=== PATIENT | female | born 1975 | race Caucasian/White ===

== ENCOUNTER 2019-03-08 14:39 | Emergency (ER) | payer OTHER ==
[2019-03-08 14:49] VITALS: TEMP 98.4
--- NOTE | 2019-03-08 15:17 | ED ---
General Adult HPI - General Chief complaint: Psychiatric Symptoms Stated complaint: SUICIDAL Time Seen by Provider: 03/08/19 14:45 Source: patient, RN notes reviewed Mode of arrival: ambulatory Limitations: no limitations - History of Present Illness Initial comments: This a 43-year-old female presents emergency department with past medical history significant for depression. Patient states today she comes in because she has had an urge to harm herself. Patient states she is scratching at her wrists. Patient states she has had some suicidal thoughts but she is always had some suicidal thoughts. Patient does not think she is at the point where she would act on them. Patient denies any drug use patient denies any L Colles'. Patient denies any physical complaints today. Patient denies headache patient denies numbness weakness. Patient denies lightheadedness dizziness or near syncopal episode. Patient denies any chest pain palpitations difficulty breathing shortest breath per patient denies any abdominal pain patient denies nausea vomiting or diarrhea. - Related Data Home Medications Medication Instructions Recorded Confirmed Acetaminophen-Codeine 300-30mg 1 tab PO BID PRN 08/19/16 03/08/19 [Tylenol w/codeine #3] Albuterol Inhaler [Ventolin Hfa 1 - 2 puff INHALATION RT-Q6H PRN 08/19/16 0 03/08/19 Inhaler] Mometasone/Formoterol [Dulera 200 2 puff INHALATION RT-BID 03/08/19 03/08/19 Mcg/5 Mcg Inhaler] tiZANidine [Zanaflex] 4 mg PO TID 03/08/19 03/08/19 Previous Rx's Medication Instructions Recorded Escitalopram [Lexapro] 20 mg PO DAILY #30 tab 08/26/16 OLANZapine ODT [ZyPREXA Zydis] 5 mg PO BID PRN #30 tab 08/26/16 QUEtiapine [SEROquel] 200 mg PO HS #30 tab 08/26/16 Allergies Allergy/AdvReac Type Severity Reaction Status Date / Time lamotrigine [From Lamictal] Allergy Unknown Verified 03/08/19 16:11 latex Allergy Rash/Hives Verified 03/08/19 16:16 prochlorperazine Allergy Unknown Verified 03/08/19 16:11 [From Compazine] promethazine [From Phenergan] Allergy Unknown Verified 03/08/19 16:11 prednisone AdvReac Hallucinati Verified 03/08/19 16:11 ons Review of Systems ROS Statement: Those systems with pertinent positive or pertinent negative responses have been documented in the HPI. ROS Other: All systems not noted in ROS Statement are negative. Past Medical History Past Medical History: Asthma, Musculoskeletal Disorder Additional Past Medical History / Comment(s): spinal stenonsis, 2 herniated discs History of Any Multi-Drug Resistant Organisms: None Reported Past Surgical History: Cholecystectomy, Joint Replacement Additional Past Surgical History / Comment(s): bilateral knee Past Psychological History: Anxiety, Depression Smoking Status: Never smoker Past Alcohol Use History: None Reported Past Drug Use History: None Reported General Exam - General Exam Comments Initial Comments: GENERAL: Patient is well-developed and well-nourished. Patient is nontoxic and well- hydrated and is in no acute distress. ENT: Neck is soft and supple. No significant lymphadenopathy is noted. Oropharynx is clear. Moist mucous membranes. Neck has full range of motion without eliciting any pain. EYES: The sclera were anicteric and conjunctiva were pink and moist. Extraocular movements were intact and pupils were equal round and reactive to light. Eyelids were unremarkable. PULMONARY: Unlabored respirations. Good breath sounds bilaterally. No audible rales rhonchi or wheezing was noted. CARDIOVASCULAR: There is a regular rate and rhythm without any murmurs gallops or rubs. ABDOMEN: Soft and nontender with normal bowel sounds. No palpable organomegaly was noted. There is no palpable pulsatile mass. SKIN: Skin is clear with no lesions or rashes and otherwise unremarkable. NEUROLOGIC: Patient is alert and oriented x3. Cranial nerves II through XII are grossly in tact. Motor and sensory are also intact. Normal speech, volume and content. Symmetrical smile. MUSCULOSKELETAL: Normal extremities with adequate strength and full range of motion. No lower extremity swelling or edema. No calf tenderness. PSYCHIATRIC: Patient states she wants to harm herself. Limitations: no limitations Course Vital Signs 03/08/19 14:47 Temperature 98.4 F Pulse Rate 123 H Respiratory 16 Rate Blood Pressure 125/82 O2 Sat by Pulse 96 Oximetry Medical Decision Making - Lab Data Lab Results 03/08/19 Range/Units 15:00 Urine Opiates Screen Not Detected (NotDetected) Ur Oxycodone Screen Not Detected (NotDetected) Urine Methadone Screen Not Detected (NotDetected) Ur Propoxyphene Screen Not Detected (NotDetected) Ur Barbiturates Screen Not Detected (NotDetected) U Tricyclic Antidepress Detected H (NotDetected) Ur Phencyclidine Scrn Not Detected (NotDetected) Ur Amphetamines Screen Not Detected (NotDetected) U Methamphetamines Scrn Not Detected (NotDetected) U Benzodiazepines Scrn Not Detected (NotDetected) Urine Cocaine Screen Not Detected (NotDetected) U Marijuana (THC) Screen Not Detected (NotDetected) Disposition Clinical Impression: Depression Disposition: HOME SELF-CARE Condition: Good Instructions (If sedation given, give patient instructions): Depression (ED) Is patient prescribed a controlled substance at d/c from ED?: No Referrals: Gaudencio Eason DO [Primary Care Provider] - 1-2 days Time of Disposition: 17:44
[2019-03-08 15:45] LABS: Amphetamine Screen,Urine Not Detected (NotDetected); Barbiturate Screen,Urine Not Detected (NotDetected); Benzodiazepines Screen,Urine Not Detected (NotDetected); Cocaine Screen,Urine Not Detected (NotDetected); Methadone Screen, Urine Not Detected (NotDetected); Opiate Screen,Urine Not Detected (NotDetected); Oxycodone Screen, Urine Not Detected (NotDetected); Phencyclidine Screen,Urine Not Detected (NotDetected); Tricyclic Antidepressant,Urine Detected (NotDetected); Urn Cannabinoid Scrn Not Detected (NotDetected)
[2019-03-08 17:54] VITALS: BP 131/70; PULSE 78; RESP 18
== END 2019-03-08 17:55 | disposition home or self-care (01) ==
LOC: EC 14:39
DX: F32.9 Major depressive disorder, single episode, unspecified (principal); R45.851 Suicidal ideations; J45.909 Unspecified asthma, uncomplicated; Z88.8 Allergy status to other drugs, medicaments and biological substances; Z91.040 Latex allergy status; Z79.51 Long term (current) use of inhaled steroids; Z87.39 Personal history of other diseases of the musculoskeletal system and connective tissue; Z96.653 Presence of artificial knee joint, bilateral
CPT/HCPCS: 80306; 82075; 99285

== ENCOUNTER 2019-03-13 11:37 | Inpatient (IN) | payer OTHER ==
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
[2019-03-13 17:23] LABS: Amphetamine Screen,Urine Not Detected (NotDetected); Barbiturate Screen,Urine Not Detected (NotDetected); Benzodiazepines Screen,Urine Not Detected (NotDetected); Cocaine Screen,Urine Not Detected (NotDetected); Methadone Screen, Urine Not Detected (NotDetected); Opiate Screen,Urine Detected (NotDetected); Oxycodone Screen, Urine Not Detected (NotDetected); Phencyclidine Screen,Urine Not Detected (NotDetected); Tricyclic Antidepressant,Urine Detected (NotDetected); Urn Cannabinoid Scrn Not Detected (NotDetected)
[2019-03-13] MEDS ORDERED: ALBUTEROL NEBULIZED 2.5 MG/3 ML INHALATION PRN (17:29)
[2019-03-13] MEDS ORDERED: MAG HYDROX/AL HYDROX/SIMETH 30 ML CUP PO PRN (17:30)
[2019-03-13] MEDS ORDERED: LORazepam 1 MG TAB PO PRN (17:30)
[2019-03-13] MEDS ORDERED: ZIPRASIDONE 20 MG VIAL IM PRN (17:30)
[2019-03-13] MEDS ORDERED: LORazepam 2 MG/ML INJ IM PRN (17:33)
[2019-03-13 18:21] VITALS: BMI 46.6
[2019-03-13] MEDS: ACETAMINOPHEN TAB 325 MG TAB PO PRN (20:48)
[2019-03-13] MEDS: QUEtiapine 50 MG TAB PO SCH (20:48)
[2019-03-13] MEDS: SYMBICORT 160-4.5 MCG INHALER INHALATION SCH (21:34)
[2019-03-14] MEDS ORDERED: IBUPROFEN 600 MG TAB PO PRN (07:11)
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
[2019-03-14] MEDS: ALBUTEROL INHALER 60 PUFF/8 GM INHALER INHALATION PRN ×3 (07:48→20:17)
[2019-03-14] MEDS: SYMBICORT 160-4.5 MCG INHALER INHALATION SCH ×2 (07:48→15:57)
[2019-03-14] MEDS ORDERED: PNEUMOCOCCAL VACC-PNEUMOVAX 23 25 MCG/0.5 ML VIAL IM ONE (09:00)
[2019-03-14] MEDS ORDERED: ESCITALOPRAM 20 MG TAB PO SCH (09:00)
[2019-03-14 10:27] LABS: Basophils # (A) 0.1 k/uL (0-0.2); Basophils % (A) 1 %; Eosinophils # (A) 0.4 k/uL (0-0.7); Eosinophils % (A) 5 %; HCT 45.4 % (34.0-46.0); HGB 14.6 gm/dL (11.4-16.0); Lymphocytes # (A) 1.6 k/uL (1.0-4.8); Lymphocytes % (A) 23 %; MCHC 32.2 g/dL (31.0-37.0); MCV 86.8 fL (80.0-100.0); Mean Platelet Volume 7.7; Monocytes # (A) 0.3 k/uL (0-1.0); Monocytes % (A) 5 %; Neutrophils # (A) 4.8 k/uL (1.3-7.7); Neutrophils % (A) 67 %; Platelet Count 268 k/uL (150-450); RBC 5.23 m/uL (3.80-5.40); RDW 13.9 % (11.5-15.5); WBC 7.2 k/uL (3.8-10.6)
[2019-03-14 11:28] LABS: Albumin 4.1 g/dL (3.5-5.0); Calcium 9.7 mg/dL (8.4-10.2); Potassium 4.5 mmol/L (3.5-5.1); Total Bilirubin 0.5 mg/dL (0.2-1.3); Total Protein 6.9 g/dL (6.3-8.2)
[2019-03-14] MEDS: ACETAMINOPHEN TAB 325 MG TAB PO PRN (11:37)
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
[2019-03-14] MEDS: Acetaminophen-Codeine 300-30mg TAB PO PRN (15:00)
[2019-03-14] MEDS: tiZANidine 4 MG TAB PO PRN (15:04)
[2019-03-14] MEDS: PRAMIPEXOLE 0.5 MG TAB PO SCH (20:23)
[2019-03-14] MEDS: OXcarbazepine 150 MG TAB PO SCH (20:23)
[2019-03-14] MEDS: QUEtiapine 50 MG TAB PO SCH (20:23)
[2019-03-15] MEDS: Acetaminophen-Codeine 300-30mg TAB PO PRN ×2 (08:32→18:26)
[2019-03-15] MEDS: OXcarbazepine 150 MG TAB PO SCH (08:33)
[2019-03-15] MEDS: tiZANidine 4 MG TAB PO PRN ×2 (09:08→18:26)
[2019-03-15] MEDS: SYMBICORT 160-4.5 MCG INHALER INHALATION SCH ×2 (10:13→21:25)
[2019-03-15] MEDS: ALBUTEROL INHALER 60 PUFF/8 GM INHALER INHALATION PRN ×2 (10:13→21:25)
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
[2019-03-15] MEDS: OXcarbazepine 300 MG TAB PO SCH (21:29)
[2019-03-15] MEDS: QUEtiapine 50 MG TAB PO SCH (21:30)
[2019-03-15] MEDS: PRAMIPEXOLE 0.5 MG TAB PO SCH (21:30)
[2019-03-16] MEDS: OXcarbazepine 300 MG TAB PO SCH (08:22)
[2019-03-16] MEDS: Acetaminophen-Codeine 300-30mg TAB PO PRN ×2 (08:22→21:05)
[2019-03-16] MEDS: tiZANidine 4 MG TAB PO PRN ×2 (09:02→21:04)
[2019-03-16] MEDS: SYMBICORT 160-4.5 MCG INHALER INHALATION SCH ×2 (09:51→20:43)
[2019-03-16] MEDS: ALBUTEROL INHALER 60 PUFF/8 GM INHALER INHALATION PRN ×3 (09:52→20:42)
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
[2019-03-16] MEDS ORDERED: lamoTRIgine 25 MG TAB PO SCH (21:00)
[2019-03-16] MEDS: PRAMIPEXOLE 1 MG TAB PO SCH (21:03)
[2019-03-16] MEDS: QUEtiapine 100 MG TAB PO SCH (21:03)
[2019-03-17] MEDS: ALBUTEROL INHALER 60 PUFF/8 GM INHALER INHALATION PRN ×3 (08:59→20:47)
[2019-03-17] MEDS: SYMBICORT 160-4.5 MCG INHALER INHALATION SCH ×2 (09:00→20:48)
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
[2019-03-17] MEDS: tiZANidine 4 MG TAB PO PRN (14:55)
[2019-03-17] MEDS: Acetaminophen-Codeine 300-30mg TAB PO PRN (14:55)
[2019-03-17 15:13] LABS: Appearance,Urine Clear (Clear); Bacteria,Urine Rare /hpf; Bilirubin,Urine Negative (Negative); Blood,Urine Trace (Negative); Color,Urine Light Yellow; Glucose,Urine (UA) Negative (Negative); Ketones,Urine Negative (Negative); Leukocyte Esterase,Urine Small (Negative); Mucus,Urine Rare /hpf; Nitrite,Urine Negative (Negative); Protein,Urine Negative (Negative); RBC,Urine 1 /hpf (0-5); Specific Gravity,Urine 1.012 (1.001-1.035); Squamous Epithelial Cell,Urine 2 /hpf (0-4); Urobilinogen,Urine <2.0 mg/dL (<2.0); WBC,Urine 1 /hpf (0-5)
[2019-03-17] MEDS: PRAMIPEXOLE 1 MG TAB PO SCH (20:13)
[2019-03-17] MEDS: QUEtiapine 100 MG TAB PO SCH (20:13)
[2019-03-17] MEDS ORDERED: lamoTRIgine 25 MG TAB PO SCH (21:00)
[2019-03-17] MEDS ORDERED: lamoTRIgine 25 MG TAB PO STA (22:07)
[2019-03-18] MEDS ORDERED: ONDANSETRON 4 MG TAB PO PRN (10:09)
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
[2019-03-18] MEDS: tiZANidine 4 MG TAB PO PRN (10:47)
[2019-03-18] MEDS: Acetaminophen-Codeine 300-30mg TAB PO PRN (10:48)
[2019-03-18] MEDS: ALBUTEROL INHALER 60 PUFF/8 GM INHALER INHALATION PRN ×2 (10:56→21:37)
[2019-03-18] MEDS: SYMBICORT 160-4.5 MCG INHALER INHALATION SCH ×2 (10:57→21:37)
[2019-03-18] MEDS: lamoTRIgine 100 MG TAB PO SCH (20:08)
[2019-03-18] MEDS: QUEtiapine 100 MG TAB PO SCH (20:08)
[2019-03-18] MEDS ORDERED: MELATONIN 3 MG TABLET PO SCH (21:00)
[2019-03-19] MEDS: SYMBICORT 160-4.5 MCG INHALER INHALATION SCH ×2 (07:33→21:17)
[2019-03-19] MEDS: MAGNESIUM HYDROXIDE 2,400 MG/10 ML CUP PO PRN (08:16)
--- NOTE | 2019-03-19 09:31 | P.PN ---
Progress Note - Text Interval history: The patient is found at the front that she follows me to an interview room. She indicates her mood is better today. She had a pleasant visit with her mother last evening. She states that she slept about 5 hours staff recorded 6. She reports waking frequently throughout the night. She asks for something else for sleep. She states that her nausea is gone and she thinks it's because we discontinued the Mirapex. No concerns regarding the Lamictal no report of rash. She has been attending groups. Mental status exam: The patient is a 43-year-old female appearing her stated age. She is dressed in her own clothing hygiene grooming are adequate. She is alert pleasant and cooperative. She reports her mood is improved affect is euthymic. She is reporting no acute suicidal or homicidal ideation intent or plan. She is reporting no auditory or visual hallucinations or any specific delusions. There is no observed evidence of psychosis. She does not appear hypomanic or manic. Insight and judgment improving. She remains oriented to person place and date. She demonstrates no involuntary repetitive movements. Plan: The patient will continue on her current psychotropic medications. We will discontinue the melatonin and initiate trazodone 50 mg at bedtime for insomnia. Overall she appears to be clinically improving. We will encourage full participation in the milieu we will continue monitoring her for safety. Vital signs reviewed.
[2019-03-19] MEDS: tiZANidine 4 MG TAB PO PRN (10:52)
[2019-03-19] MEDS: Acetaminophen-Codeine 300-30mg TAB PO PRN (10:53)
[2019-03-19] MEDS: traZODone HCL 50 MG TAB PO SCH (20:16)
[2019-03-19] MEDS: lamoTRIgine 100 MG TAB PO SCH (20:16)
[2019-03-19] MEDS: QUEtiapine 100 MG TAB PO SCH (20:16)
[2019-03-19] MEDS: ALBUTEROL INHALER 60 PUFF/8 GM INHALER INHALATION PRN (21:17)
[2019-03-20] MEDS: MAGNESIUM HYDROXIDE 2,400 MG/10 ML CUP PO PRN (08:24)
[2019-03-20] MEDS: SYMBICORT 160-4.5 MCG INHALER INHALATION SCH (08:54)
[2019-03-20] MEDS: ALBUTEROL INHALER 60 PUFF/8 GM INHALER INHALATION PRN (08:54)
[2019-03-20] MEDS: tiZANidine 4 MG TAB PO PRN (08:59)
[2019-03-20] MEDS: Acetaminophen-Codeine 300-30mg TAB PO PRN (08:59)
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
[2019-03-20] MEDS: traZODone HCL 50 MG TAB PO SCH (20:58)
[2019-03-20] MEDS: lamoTRIgine 100 MG TAB PO SCH (20:58)
[2019-03-20] MEDS: QUEtiapine 100 MG TAB PO SCH (20:58)
[2019-03-21] MEDS: LIOTHYRONINE SODIUM 5 MCG TAB PO SCH (08:54)
[2019-03-21] MEDS: ALBUTEROL INHALER 60 PUFF/8 GM INHALER INHALATION PRN ×2 (08:55→20:49)
[2019-03-21] MEDS: SYMBICORT 160-4.5 MCG INHALER INHALATION SCH ×4 (08:56→21:19)
[2019-03-21] MEDS ORDERED: hydrOXYzine PAMOATE 25 MG CAP PO PRN (12:27)
[2019-03-21] MEDS: tiZANidine 4 MG TAB PO PRN (12:39)
[2019-03-21] MEDS: Acetaminophen-Codeine 300-30mg TAB PO PRN (12:40)
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
[2019-03-21] MEDS: traZODone HCL 100 MG TAB PO SCH (20:48)
[2019-03-21] MEDS: QUEtiapine 100 MG TAB PO SCH (20:48)
[2019-03-21] MEDS: lamoTRIgine 100 MG TAB PO SCH (20:48)
[2019-03-22 06:50] VITALS: RESP 16
[2019-03-22] MEDS: LIOTHYRONINE SODIUM 5 MCG TAB PO SCH (08:43)
[2019-03-22] MEDS: SYMBICORT 160-4.5 MCG INHALER INHALATION SCH ×2 (08:44→21:51)
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
[2019-03-22] MEDS: tiZANidine 4 MG TAB PO PRN (18:28)
[2019-03-22] MEDS: Acetaminophen-Codeine 300-30mg TAB PO PRN (18:28)
[2019-03-22] MEDS: QUEtiapine 100 MG TAB PO SCH (20:09)
[2019-03-22] MEDS: lamoTRIgine 100 MG TAB PO SCH (20:09)
[2019-03-22] MEDS: traZODone HCL 100 MG TAB PO SCH (20:09)
[2019-03-22] MEDS: ALBUTEROL INHALER 60 PUFF/8 GM INHALER INHALATION PRN (21:51)
[2019-03-23 07:16] VITALS: TEMP 98.1
[2019-03-23] MEDS: LIOTHYRONINE SODIUM 5 MCG TAB PO SCH (07:55)
[2019-03-23] MEDS: ALBUTEROL INHALER 60 PUFF/8 GM INHALER INHALATION PRN (07:56)
[2019-03-23] MEDS: SYMBICORT 160-4.5 MCG INHALER INHALATION SCH (07:56)
[2019-03-23] MEDS: Acetaminophen-Codeine 300-30mg TAB PO PRN (08:16)
[2019-03-23] MEDS: tiZANidine 4 MG TAB PO PRN (08:16)
[2019-03-23 09:51] VITALS: BP 123/64; PULSE 100
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
== END 2019-03-23 12:21 | disposition home or self-care (01) | DRG 881 ==
LOC: EC 11:37 → 3MHU 17:18
PROVIDERS: ADMIT Psychiatry & Neurology Psychiatry; ATTEND Psychiatry & Neurology Psychiatry
DX: F32.9 Major depressive disorder, single episode, unspecified (principal); Z68.42 Body mass index [BMI] 45.0-49.9, adult; F41.0 Panic disorder [episodic paroxysmal anxiety]; G25.81 Restless legs syndrome; J45.20 Mild intermittent asthma, uncomplicated; Z91.5 Personal history of self-harm; V89.2XXA Person injured in unspecified motor-vehicle accident, traffic, initial encounter; Y92.410 Unspecified street and highway as the place of occurrence of the external cause; Z79.51 Long term (current) use of inhaled steroids; Z79.899 Other long term (current) drug therapy; Z80.0 Family history of malignant neoplasm of digestive organs; Z91.410 Personal history of adult physical and sexual abuse; E66.01 Morbid (severe) obesity due to excess calories; Z71.3 Dietary counseling and surveillance; Z88.8 Allergy status to other drugs, medicaments and biological substances; Z91.040 Latex allergy status; M48.00 Spinal stenosis, site unspecified; M54.2 Cervicalgia
CPT/HCPCS: 70450; 71045; 72070; 72100; 72125; 72170; 80053; 80061; 80306; 81001; 81025; 83001; 83036; 84436; 84443; 84479; 85025; 90732; 94640; 99285

== ENCOUNTER → 2020-07-17 | Outpatient (CLI) | payer OTHER ==
--- NOTE | 2020-07-17 15:26 | MR ---
EXAMINATION TYPE: MR shoulder LT wo con DATE OF EXAM: 07/17/2020 COMPARISON: NONE HISTORY: LT rotator cuff pain and loss of strength TECHNIQUE: Multiplanar, multisequence imaging of the left shoulder is performed without contrast. FINDINGS: Motion artifact degradation is seen. Rotator Cuff: Distal supraspinatus and infraspinatus tendons are intact. Subscapularis tendon is inta ct. Rotator cuff muscle bulk is preserved. Acromioclavicular Joint: Mild to moderate narrowing and capsular hypertrophy, loss of underlying fat plane on sagittal image 14. No significant spurring. Distal acromion morphology unremarkable. Glenohumeral Joint: Moderate size joint effusion with mild to moderate narrowing. Synovial thickening . No significant spurring. Labrum: The labrum appears grossly intact given limitation of non-arthrogram study. Biceps Tendon: The long head of biceps is in normal location within bicipital groove. Bone marrow signal: No focal abnormal marrow signal is appreciated. Other: No additional significant abnormality is appreciated. IMPRESSION: Suboptimal due to motion artifact. [id number] degenerative changes as detailed abov e. MRI evidence of underlying impingement. No rotator cuff or labral tear noted.
== END | disposition home or self-care (01) ==
LOC: RADMRIMAIN 14:00
PROVIDERS: ATTEND Student in an Organized Health Care Education/Training Program
DX: M19.012 Primary osteoarthritis, left shoulder (principal)

== ENCOUNTER 2021-05-07 | Emergency (ER) | payer OTHER | END 2021-05-07 19:14 | disposition home or self-care (01) | CPT/HCPCS: 36415; 74018; 80053; 81001; 81025; 82150; 83605; 83690; 85025; 96361; 96374; 96375; 99284 ==